=== PATIENT | female | born 1950 | race Caucasian/White ===

== ENCOUNTER 2016-12-01 23:13 | Emergency (ER) | payer MEDICARE, OTHER | END 2016-12-02 05:19 | disposition home or self-care (01) | LOC: ER1 23:13 | DX: M25.552 Pain in left hip (principal); R35.0 Frequency of micturition; E11.9 Type 2 diabetes mellitus without complications; I11.9 Hypertensive heart disease without heart failure; J44.9 Chronic obstructive pulmonary disease, unspecified; J45.909 Unspecified asthma, uncomplicated; Z87.891 Personal history of nicotine dependence; Z88.2 Allergy status to sulfonamides; Z88.8 Allergy status to other drugs, medicaments and biological substances; Z96.642 Presence of left artificial hip joint | CPT/HCPCS: 73502; 81001; 87086; 96374; 99284; J2270 ==